=== PATIENT | female | born 1980 | race Caucasian/White ===

== ENCOUNTER 2016-08-08 05:38 | Day surgery (SDC) | payer OTHER ==
[~2016-08-08] VITALS: Ht 165.1 cm; Wt 81.6 kg
[~2016-08-08 05:38] MED LIST: HYDR-2808 PO; LR 1,000 ML IV SCH; METO10TA2 PO; METO5TAB2 PO; NAPR500T2 PO; NORC5TAB PO; PAXI20TA3 PO
[2016-08-08] MEDS ORDERED: LR 1,000 ML IV SCH ×4 (05:45→13:00)
[2016-08-08 06:08] LABS: MEAN CORPUSCULAR HEMOGLOBIN 30.9 pg (27.0-33.0); MEAN CORPUSCULAR HGB CONC 34.9 g/dl (32.0-36.5); MEAN CORPUSCULAR VOLUME 88.5 fl (80.0-96.0); RED CELL DISTRIBUTION WIDTH 12.8 % (11.5-14.5); WHITE BLOOD COUNT 7.4 K/mm3 (4.0-10.0)
[2016-08-08 06:33] LABS: CONTROL LINE UCG INT CTR LINE PRESENT
[2016-08-08] MEDS ORDERED: METHYLENE BLUE 1% 10 ML VIAL (Q9968) As Ordered ONE (07:02)
[2016-08-08] MEDS ORDERED: BUPIVACAINE HCL 0.25% 30 ML VIAL As Ordered ONE (07:02)
[2016-08-08] MEDS ORDERED: ONDANSETRON 4MG/2ML VIAL (J2405) As Ordered ONE (07:07)
[2016-08-08] MEDS ORDERED: LIDOCAINE 2% INJ 100 MG/5 ML SDV (FOR ANES.) As Ordered ONE (07:07)
[2016-08-08] MEDS ORDERED: PROPOFOL 200 MG/20 ML VIAL As Ordered ONE ×2 (07:07→09:53)
[2016-08-08] MEDS ORDERED: ROCURONIUM BROMIDE 50 MG/5 ML VIAL As Ordered ONE (07:07)
[2016-08-08] MEDS ORDERED: MIDAZOLAM INJ 2 MG/2 ML VIAL (J2250) As Ordered ONE (07:09)
[2016-08-08] MEDS ORDERED: fentaNYL 100 MCG/2 ML INJECTION (J3010) As Ordered ONE ×3 (07:09→10:00)
[2016-08-08] MEDS ORDERED: SEVOFLURANE INHAL SOLN 250 ML BTL As Ordered ONE (07:15)
[2016-08-08] MEDS ORDERED: dexameTHASONE 4 MG/ML 1ML VIAL (J1100) As Ordered ONE (08:03)
[2016-08-08] MEDS ORDERED: BUPIVACAINE HCL 0.25% 30 ML VIAL XX ONE (08:36)
[2016-08-08] MEDS ORDERED: HYDROmorphone HCL 2 MG/ML 1ML VIAL (J1170) As Ordered ONE (09:00)
[2016-08-08] MEDS ORDERED: NEOSTIGMINE 1MG/ML 5 ML SYRINGE (J2710) As Ordered ONE (09:22)
[2016-08-08] MEDS ORDERED: GLYCOPYRROLATE INJ 0.2 MG/ML 2 ML VIAL As Ordered ONE (09:22)
[2016-08-08] MEDS ORDERED: OXYC1TAB23 PO (09:46)
[2016-08-08] MEDS: fentaNYL 100 MCG/2 ML INJECTION (J3010) IV PRN ×4 (10:00→10:15)
[2016-08-08] MEDS ORDERED: ONDANSETRON 4MG/2ML VIAL (J2405) IV PRN ×2 (10:30)
[2016-08-08] MEDS ORDERED: PERCOCET 5MG/325MG TAB PO PRN ×2 (10:30)
[2016-08-08] MEDS ORDERED: MORPHINE 4 MG/ML 1ML SYRINGE IV PRN (10:30)
[2016-08-08] MEDS ORDERED: KETOROLAC 30 MG/ML VIAL (J1885) IV PRN (10:30)
[2016-08-08] MEDS: HYDROmorphone HCL 1 MG/ML SYRINGE (J1170) IV PRN ×5 (10:31→11:06)
[2016-08-08 11:30] VITALS: BP 136/74
[2016-08-08] MEDS: LR 1,000 ML IV SCH ×2 (11:31→18:30)
[2016-08-08] MEDS: PERCOCET 5MG/325MG TAB PO PRN ×3 (11:48→20:36)
[2016-08-08] MEDS: DOCUSATE SODIUM 100 MG CAP PO SCH ×2 (11:48→20:37)
[2016-08-08 12:00] VITALS: BP 107/58
[2016-08-08 13:00] VITALS: BP 109/60
[2016-08-08 14:00] VITALS: BP 113/62
[2016-08-08 16:00] VITALS: BP 116/57
[2016-08-08] MEDS: NICOTINE 21MG/24HR 1 EA TRANSDERMAL TD SCH (17:00)
[2016-08-08 20:00] VITALS: BP 121/71
[2016-08-09] VITALS: BP 133/64
[2016-08-09] MEDS: PERCOCET 5MG/325MG TAB PO PRN ×2 (02:23→08:26)
[2016-08-09 04:00] VITALS: BP 141/83
--- NOTE | 2016-08-09 05:23 | RO ---
DATE OF PROCEDURE: 08/08/2016 PREOPERATIVE DIAGNOSIS: Pelvic pain, menorrhagia. POSTOPERATIVE DIAGNOSIS: Pelvic pain, menorrhagia. PROCEDURE: Robotic assisted laparoscopic hysterectomy, cystoscopy. SURGEON: Fitz Crawford MD DIAZO TECHNICIAN: Donna Ayala NP ANESTHESIA: General endotracheal. ESTIMATED BLOOD LOSS: 50 mL. FINDINGS: Normal size uterus. Normal fallopian tubes and ovaries. Moderate scarring of the anterior surface of the uterus from prior abdomen. She had normal bladder mucosa with bilateral ureteral jets identified on cystoscopy. OPERATIVE SUMMARY: Patient taken to the operating room where general endotracheal anesthesia was induced. She was prepped and draped in sterile fashion in the dorsal lithotomy position. A Escamilla catheter was placed. A VCare uterine manipulator was placed. A periumbilical incision was made with a scalpel. A Veress needle was placed through this incision while tenting up on skin of the abdomen. Intraabdominal location of the Veress needle was assessed with use of a saline filled syringe. Pneumoperitoneum was created. Three 8 mm suprapubic ports were placed under direct visualization without difficulty. The patient was then placed in steep Trendelenburg position. The da Lee surgical robot was docked through the ports. The procedure was completed using PK dissector and monopolar Endo Adán. The fallopian tubes, utero-ovarian ligaments and round ligaments were coagulated and incised. The anterior and posterior leaflets of the broad ligament were . A bladder flap was created with a combination of blunt and sharp dissection. There was moderate scarring of the bladder to the anterior uterus. The uterine vessels were skeletonized, coagulated and incised. Colpotomy was created using the monopolar Endo Adán and circumferentially around the upper vagina to the level of the VCare cut. The vaginal mucosa was closed with V-Loc suture in a running fashion. The pelvis copiously irrigated. There was a superficial muscularis injury to the bladder, which was repaired with a single interrupted suture of #3-0 Vicryl. All instruments were removed. Cystoscopy was performed using a 70 degree cystoscope. Bilateral ureteral jets were identified. The patient previously received methylene blue dye intravenously. There was no evidence of injury to the bladder. The Escamilla catheter was replaced. All ports were removed. The skin was closed with #4-0 Monocryl subcuticular sutures. Sponge, instrument and needle counts were correct. The patient went to recovery room in stable condition.
[2016-08-09 07:09] LABS: MEAN CORPUSCULAR HEMOGLOBIN 31.3 pg (27.0-33.0); MEAN CORPUSCULAR HGB CONC 34.2 g/dl (32.0-36.5); MEAN CORPUSCULAR VOLUME 91.5 fl (80.0-96.0); RED CELL DISTRIBUTION WIDTH 13.2 % (11.5-14.5)
[2016-08-09] MEDS: DOCUSATE SODIUM 100 MG CAP PO SCH (08:25)
[2016-08-09] MEDS: NICOTINE 21MG/24HR 1 EA TRANSDERMAL TD SCH (08:26)
[2016-08-09] MEDS ORDERED: MOTR200T44 PO (08:35)
== END 2016-08-09 08:50 | disposition home or self-care (01) ==
LOC: M SDC 05:38 → M PED 11:00 → M SDC 08-09 08:50
PROVIDERS: ATTEND Specialist
DX: R10.2 Pelvic and perineal pain (principal); N92.0 Excessive and frequent menstruation with regular cycle; G89.29 Other chronic pain; F41.9 Anxiety disorder, unspecified; F17.210 Nicotine dependence, cigarettes, uncomplicated; Z91.030 Bee allergy status; Z79.899 Other long term (current) drug therapy

== ENCOUNTER → 2017-03-25 | Outpatient (CLI) | payer OTHER, SELFPAY ==
[~2017-03-25] MED LIST changes: -LR 1,000 ML IV SCH; +MOTR200T44 PO; -NAPR500T2 PO; +NAPR500T3 PO; +NORC1TAB4 PO; -NORC5TAB PO; +OXYC1TAB23 PO; +PAXI20TA29 PO; -PAXI20TA3 PO
--- NOTE | 2017-03-25 15:27 | REP ---
AP pelvis and bilateral hips: AP pelvis: Mineralization is normal. The sacroiliac and hip articulations are unremarkable. Surgical clips superimposed over the sacrum. No pelvic fractures are identified. Impression: Negative AP pelvis. Right hip two views : There is no fracture or dislocation. Mineralization and joint spaces are normal. There are no calcifications or foreign bodies. Impression: Negative Right hip Left hip two views : There is no fracture or dislocation. Mineralization and joint spaces are normal. There are no calcifications or foreign bodies. Impression: Negative left hip . Signed by Syed Guaman MD 03/25/2017 03:19 P
== END ==
LOC: M RAD 13:20
PROVIDERS: ATTEND Obstetrics & Gynecology
DX: M25.552 Pain in left hip (principal); M25.551 Pain in right hip

== ENCOUNTER → 2017-12-17 | Outpatient (CLI) | payer MEDICAID | LOC: M OUTALCOH 08:18 | DX: Z03.89 Encounter for observation for other suspected diseases and conditions ruled out (principal) ==

== ENCOUNTER 2017-12-27 11:34 | Outpatient (RCR) | payer MEDICAID | END 2018-01-21 | LOC: M OUTALCOH 01-03 10:00 | DX: F11.10 Opioid abuse, uncomplicated (principal) ==

== ENCOUNTER 2017-12-29 11:43 | Emergency (ER) | payer OTHER, MEDICAID ==
[2017-12-29] MEDS ORDERED: METHOCARBAMOL 1,000 MG/10 ML VIAL (J2800) IM (13:00)
[2017-12-29] MEDS: ONDANSETRON 4 MG ORAL DISINTEGRATING TAB (Q0162 PER 1MG) PO (13:10)
[2017-12-29] MEDS: diazePAM 5 MG TAB PO (13:10)
[2017-12-29] MEDS: predniSONE 20 MG TAB PO (13:10)
[2017-12-29] MEDS: METHOCARBAMOL 500 MG TAB PO (14:15)
== END 2017-12-29 14:49 | disposition home or self-care (01) ==
LOC: M ED 11:43
DX: M54.5 Low back pain (principal); M25.552 Pain in left hip; N80.0 Endometriosis of uterus; F41.9 Anxiety disorder, unspecified; F17.200 Nicotine dependence, unspecified, uncomplicated; Z91.030 Bee allergy status; Z79.899 Other long term (current) drug therapy; Z79.1 Long term (current) use of non-steroidal anti-inflammatories (NSAID); Z79.891 Long term (current) use of opiate analgesic
CPT/HCPCS: Q0162

== ENCOUNTER 2018-03-06 16:00 | Outpatient (RCR) | payer MEDICAID | END 2018-03-23 | LOC: M OUTALCOH 16:00 | DX: F11.10 Opioid abuse, uncomplicated (principal) ==

== ENCOUNTER 2018-04-03 15:40 | Outpatient (RCR) | payer MEDICAID | END 2018-04-23 | LOC: M OUTALCOH 15:40 | DX: F11.10 Opioid abuse, uncomplicated (principal) ==

== ENCOUNTER → 2018-06-04 | Outpatient (CLI) | payer OTHER ==
[2018-06-04 09:42] LABS: HEMATOCRIT 44.1 % (36.0-47.0); HEMOGLOBIN 14.8 g/dl (12.0-15.5); MEAN CORPUSCULAR HEMOGLOBIN 32.4 pg (27.0-33.0); MEAN CORPUSCULAR HGB CONC 33.6 g/dl (32.0-36.5); MEAN CORPUSCULAR VOLUME 96.5 fl (80.0-96.0); PLATELET COUNT, AUTOMATED 265 10^3/uL (150-450); RED BLOOD COUNT 4.57 10^6/uL (4.00-5.40); RED CELL DISTRIBUTION WIDTH 12.9 % (11.5-14.5); WHITE BLOOD COUNT 8.5 10^3/uL (4.0-10.0)
[2018-06-04 12:00] LABS: ALBUMIN 3.8 GM/DL (3.2-5.2); ALBUMIN/GLOBULIN RATIO 1.27 (1.00-1.93); ALKALINE PHOSPHATASE 44 U/L (45-117); ALT/SGPT 16 U/L (12-78); ANION GAP 8 MEQ/L (8-16); AST/SGOT 9 U/L (7-37); BILIRUBIN,TOTAL 0.2 MG/DL (0.2-1.0); BLOOD UREA NITROGEN 13 MG/DL (7-18); CALCIUM LEVEL 8.4 MG/DL (8.5-10.1); CARBON DIOXIDE LEVEL 25 MEQ/L (21-32); CHLORIDE LEVEL 108 MEQ/L (98-107); CHOLESTEROL LEVEL 141 MG/DL (<200); CHOLESTEROL RISK RATIO 2.711 (<5); GLOMERULAR FILTRATION RATE > 60.0 (>60); GLUCOSE, FASTING 82 MG/DL (70-100); HDL CHOLESTEROL 52 MG/DL (>40); LDL CHOLESTEROL 76 MG/DL (<100); NON-HDL-C 89 MG/DL; POTASSIUM SERUM 4.3 MEQ/L (3.5-5.1); SODIUM LEVEL 141 MEQ/L (136-145); THYROXINE (T4) 8.4 UG/DL (4.5-12.0); TOTAL PROTEIN 6.8 GM/DL (6.4-8.2); TRIGLYCERIDES LEVEL 67 MG/DL (<150)
[2018-06-04 12:42] LABS: TOTAL 25(OH) VITAMIN D 20.3 NG/ML (30.0-100.0); TOTAL T3 91.4 NG/DL (60.0-181.0)
[2018-06-04 15:54] LABS: ESTIMATED AVERAGE GLUCOSE 103 MG/DL (60-110); HEMOGLOBIN A1c 5.2 %
== END ==
LOC: M LAB 09:09
DX: E03.9 Hypothyroidism, unspecified (principal); D64.9 Anemia, unspecified
CPT/HCPCS: 84443

== ENCOUNTER → 2018-09-16 | Outpatient (CLI) | payer MEDICAID ==
[~2018-09-16] MED LIST changes: +ALPR0.5T3; +FLUO20CA19; +HYDR-3716; +MOBI4TAB PO; +NAPR-885; +NAPR-885 PO; -NAPR500T3 PO; +PRED20TA PO; +ZANA4TAB PO
== END ==
LOC: M OUTALCOH 08:33
PROVIDERS: ATTEND Psychiatry & Neurology Psychiatry
DX: Z03.89 Encounter for observation for other suspected diseases and conditions ruled out (principal)

== ENCOUNTER 2018-10-14 10:13 | Outpatient (RCR) | payer MEDICAID ==
[~2018-10-14 10:13] MED LIST changes: -NORC1TAB4 PO; +NORC1TAB7 PO
== END 2018-10-21 ==
LOC: M OUTALCOH 10:13
PROVIDERS: ATTEND Psychiatry & Neurology Psychiatry
DX: Z03.89 Encounter for observation for other suspected diseases and conditions ruled out (principal)

== ENCOUNTER 2019-04-05 09:22 | Emergency (ER) | payer MEDICAID, OTHER ==
[~2019-04-05] VITALS: Ht 162.6 cm; Wt 64.5 kg
[2019-04-05] MEDS ORDERED: ALPR1TAB3 PO (09:37)
[2019-04-05] MEDS ORDERED: LORazepam 1 MG TAB PO ONE (10:00)
[2019-04-05] MEDS ORDERED: BUPRENORPHINE/NALOXONE 8-2MG SUBLINGUAL TABLET(SUBOXONE) SL ONE (10:00)
[2019-04-05] MEDS ORDERED: ONDANSETRON 4 MG ORAL DISINTEGRATING TAB (Q0162 PER 1MG) PO ONE (11:00)
[2019-04-05 11:33] VITALS: BP 111/59
== END 2019-04-05 11:30 | disposition home or self-care (01) ==
LOC: EDBD 09:22 → M ED 09:22
DX: F11.23 Opioid dependence with withdrawal (principal); F19.230 Other psychoactive substance dependence with withdrawal, uncomplicated; M54.30 Sciatica, unspecified side; F17.200 Nicotine dependence, unspecified, uncomplicated; Z79.899 Other long term (current) drug therapy; Z91.030 Bee allergy status
CPT/HCPCS: 99284; Q0162

== ENCOUNTER → 2020-05-27 | Outpatient (CLI) | payer OTHER ==
[~2020-05-27] MED LIST changes: +ALPR1TAB3 PO; -FLUO20CA19; +FLUO20CA22; -HYDR-2808 PO; +HYDR-4429 PO
[2020-05-27 12:31] LABS: HEMATOCRIT 44.8 % (36.0-47.0); HEMOGLOBIN 14.8 g/dl (12.0-15.5); MEAN CORPUSCULAR HEMOGLOBIN 30.1 pg (27.0-33.0); MEAN CORPUSCULAR VOLUME 91.1 fl (80.0-96.0); PLATELET COUNT, AUTOMATED 284 10^3/uL (150-450); RED BLOOD COUNT 4.92 10^6/uL (4.00-5.40); WHITE BLOOD COUNT 6.8 10^3/uL (4.0-10.0)
[2020-05-27 12:46] LABS: HEMOGLOBIN A1c 5.1 %
[2020-05-27 13:05] LABS: ALBUMIN 4.1 GM/DL (3.2-5.2); ALT/SGPT 18 U/L (12-78); BILIRUBIN,TOTAL 0.2 MG/DL (0.2-1.0); BLOOD UREA NITROGEN 15 MG/DL (7-18); CALCIUM LEVEL 9.1 MG/DL (8.5-10.1); CARBON DIOXIDE LEVEL 24 MEQ/L (21-32); CHLORIDE LEVEL 107 MEQ/L (98-107); CHOLESTEROL LEVEL 217 MG/DL (<200); CHOLESTEROL RISK RATIO 3.191 (<5); CREATININE FOR GFR 0.85 MG/DL (0.55-1.30); GLOMERULAR FILTRATION RATE > 60.0 (>60); GLUCOSE, FASTING 96 MG/DL (70-100); HDL CHOLESTEROL 68 MG/DL (>40); IRON (FE) 56 UG/DL (50-170); LDL CHOLESTEROL 130 MG/DL (<100); NON-HDL-C 149 MG/DL; POTASSIUM SERUM 4.1 MEQ/L (3.5-5.1); SODIUM LEVEL 138 MEQ/L (136-145); TOTAL PROTEIN 7.1 GM/DL (6.4-8.2); TRIGLYCERIDES LEVEL 95 MG/DL (<150)
[2020-05-27 13:06] LABS: TOTAL IRON BINDING CAPACITY 267 UG/DL (250-450)
[2020-05-27 13:10] LABS: TOTAL 25(OH) VITAMIN D 25.5 NG/ML (30.0-100.0)
== END ==
LOC: M LAB 11:00
PROVIDERS: ATTEND Family Medicine
DX: E03.9 Hypothyroidism, unspecified (principal); D64.9 Anemia, unspecified; R53.83 Other fatigue

== ENCOUNTER → 2021-04-13 | Outpatient (CLI) | payer OTHER | LOC: M LAB 10:16 | PROVIDERS: ATTEND Family Medicine | DX: Z51.81 Encounter for therapeutic drug level monitoring (principal); Z79.899 Other long term (current) drug therapy; M54.30 Sciatica, unspecified side ==

== ENCOUNTER 2021-06-10 09:28 | Emergency (ER) | payer OTHER ==
[~2021-06-10] VITALS: Ht 162.6 cm; Wt 63.4 kg
[2021-06-10] MEDS ORDERED: NS 1,000 ML IV ONE (10:20)
[2021-06-10 10:53] LABS: BASO # 0.1 10^3/uL (0.0-0.2); BASO % 0.9 % (0.0-1.0); EOS # 0.1 10^3/uL (0.0-0.5); EOS % 1.2 % (0.0-3.0); HEMATOCRIT 43.4 % (36.0-47.0); LYMPH # 1.5 10^3/uL (1.5-5.0); LYMPH % 21.6 % (24.0-44.0); MEAN CORPUSCULAR HEMOGLOBIN 31.6 pg (27.0-33.0); MEAN CORPUSCULAR HGB CONC 34.6 g/dl (32.0-36.5); MEAN CORPUSCULAR VOLUME 91.4 fl (80.0-96.0); MONO # 0.5 10^3/uL (0.0-0.8); MONO % 7.6 % (2.0-8.0); NEUTROPHILS # 4.7 10^3/uL (1.5-8.5); NEUTROPHILS % 68.4 % (36.0-66.0); PLATELET COUNT, AUTOMATED 202 10^3/uL (150-450); RED BLOOD COUNT 4.75 10^6/uL (4.00-5.40); WHITE BLOOD COUNT 6.9 10^3/uL (4.0-10.0)
[2021-06-10 11:15] LABS: ALBUMIN 4.6 GM/DL (3.2-5.2); ALT/SGPT 14 U/L (12-78); BILIRUBIN,DIRECT 0.2 MG/DL (0.0-0.2); BILIRUBIN,TOTAL 0.9 MG/DL (0.2-1.0); BLOOD UREA NITROGEN 8 MG/DL (7-18); CALCIUM LEVEL 9.8 MG/DL (8.5-10.1); CARBON DIOXIDE LEVEL 30 MEQ/L (21-32); CHLORIDE LEVEL 102 MEQ/L (98-107); GLOMERULAR FILTRATION RATE > 60.0 (>58); GLUCOSE, FASTING 103 MG/DL (70-100); LIPASE 66 U/L (73-393); POTASSIUM SERUM 3.8 MEQ/L (3.5-5.1); SODIUM LEVEL 140 MEQ/L (136-145); TOTAL PROTEIN 7.8 GM/DL (6.4-8.2)
[2021-06-10] MEDS ORDERED: ONDANSETRON 4MG/2ML VIAL IV ONE (11:30)
--- NOTE | 2021-06-10 11:41 | REP ---
INDICATION: abd pain, vomiting COMPARISON: None. TECHNIQUE: Two supine views of the abdomen and pelvis. FINDINGS: Bowel gas pattern is nonspecific and without obstruction or perforation. No organomegaly. No abnormal calcifications. Skeletal structures intact. IMPRESSION: Normal abdominal radiograph. <Electronically signed by Reg Person > 06/10/21 [id number]
[2021-06-10] MEDS ORDERED: ONDA4TAB6 PO (13:05)
[2021-06-10 13:11] VITALS: BP 118/79
== END 2021-06-10 13:18 | disposition home or self-care (01) ==
LOC: M ED 09:28
DX: R10.9 Unspecified abdominal pain (principal); R11.2 Nausea with vomiting, unspecified; F41.9 Anxiety disorder, unspecified; F32.9 Major depressive disorder, single episode, unspecified; M54.9 Dorsalgia, unspecified; Z79.899 Other long term (current) drug therapy; Z91.030 Bee allergy status
CPT/HCPCS: 74018; 80048; 80076; 83690; 85025; 96361; 96374; 99284; J2405

== ENCOUNTER → 2021-08-08 | Outpatient (CLI) | payer OTHER ==
[~2021-08-08] MED LIST changes: +ONDA4TAB6 PO
[2021-08-08 11:09] LABS: HEMATOCRIT 42.7 % (36.0-47.0); HEMOGLOBIN 14.6 g/dl (12.0-15.5); MEAN CORPUSCULAR HEMOGLOBIN 31.9 pg (27.0-33.0); MEAN CORPUSCULAR HGB CONC 34.2 g/dl (32.0-36.5); MEAN CORPUSCULAR VOLUME 93.2 fl (80.0-96.0); PLATELET COUNT, AUTOMATED 272 10^3/uL (150-450); RED BLOOD COUNT 4.58 10^6/uL (4.00-5.40); WHITE BLOOD COUNT 6.6 10^3/uL (4.0-10.0)
[2021-08-08 11:45] LABS: ALBUMIN 4.4 GM/DL (3.2-5.2); ALT/SGPT 17 U/L (12-78); BILIRUBIN,TOTAL 0.7 MG/DL (0.2-1.0); BLOOD UREA NITROGEN 9 MG/DL (7-18); CALCIUM LEVEL 9.3 MG/DL (8.5-10.1); CARBON DIOXIDE LEVEL 23 MEQ/L (21-32); CHLORIDE LEVEL 109 MEQ/L (98-107); CHOLESTEROL LEVEL 189 MG/DL (<200); CHOLESTEROL RISK RATIO 2.486 (<5); CREATININE FOR GFR 0.86 MG/DL (0.55-1.30); GLOMERULAR FILTRATION RATE > 60.0 (>58); GLUCOSE, FASTING 90 MG/DL (70-100); HDL CHOLESTEROL 76 MG/DL (>40); IRON (FE) 105 UG/DL (50-170); LDL CHOLESTEROL 99 MG/DL (<100); NON-HDL-C 113 MG/DL; PERCENT SATURATION 39.8 % (13.2-45.0); SODIUM LEVEL 140 MEQ/L (136-145); THYROXINE (T4) 10.3 UG/DL (4.5-12.0); TOTAL IRON BINDING CAPACITY 264 UG/DL (250-450); TOTAL PROTEIN 7.6 GM/DL (6.4-8.2); TRIGLYCERIDES LEVEL 68 MG/DL (<150)
[2021-08-08 11:46] LABS: TOTAL 25(OH) VITAMIN D 18.7 NG/ML (30.0-100.0)
[2021-08-08 11:53] LABS: TOTAL T3 96.8 NG/DL (60.0-181.0); VITAMIN B12 LEVEL 351 PG/ML (247-911)
[2021-08-08 12:07] LABS: HEMOGLOBIN A1c 4.9 %
== END ==
LOC: M RAD 09:27
PROVIDERS: ATTEND Family Medicine
DX: D64.9 Anemia, unspecified (principal); R53.83 Other fatigue

== ENCOUNTER 2022-08-13 14:23 | Emergency (ER) | payer OTHER ==
[~2022-08-13] VITALS: Ht 165.1 cm; Wt 63.6 kg
[~2022-08-13 14:23] MED LIST changes: -PAXI20TA29 PO; +PAXI20TA30 PO
[2022-08-13 15:27] LABS: BASO % 0.6 % (0.0-1.0); EOS # 0.2 10^3/uL (0.0-0.5); EOS % 2.4 % (0.0-3.0); HEMATOCRIT 38.4 % (36.0-47.0); HEMOGLOBIN 12.6 g/dl (12.0-15.5); LYMPH # 2.6 10^3/uL (1.5-5.0); LYMPH % 39.8 % (24.0-44.0); MEAN CORPUSCULAR HEMOGLOBIN 30.7 pg (27.0-33.0); MEAN CORPUSCULAR HGB CONC 32.8 g/dl (32.0-36.5); MEAN CORPUSCULAR VOLUME 93.4 fl (80.0-96.0); MONO # 0.5 10^3/uL (0.0-0.8); MONO % 7.6 % (2.0-8.0); NEUTROPHILS # 3.2 10^3/uL (1.5-8.5); NEUTROPHILS % 49.1 % (36.0-66.0); PLATELET COUNT, AUTOMATED 190 10^3/uL (150-450); RED BLOOD COUNT 4.11 10^6/uL (4.00-5.40); WHITE BLOOD COUNT 6.6 10^3/uL (4.0-10.0)
[2022-08-13 15:46] LABS: LIPASE 26 U/L (12-53)
[2022-08-13 15:51] LABS: ALBUMIN 3.6 G/DL (3.2-5.2); ALKALINE PHOSPHATASE 35 U/L (46-116); ALT/SGPT 14 U/L (7.0-40); AST/SGOT 24 U/L (<34); BILIRUBIN,DIRECT < 0.1 MG/DL (<0.4); BILIRUBIN,TOTAL 0.3 MG/DL (0.3-1.2); BLOOD UREA NITROGEN 8 MG/DL (9-23); CARBON DIOXIDE LEVEL 29 MMOL/L (20-31); CHLORIDE LEVEL 104 MMOL/L (98-107); CREATININE FOR GFR 0.76 MG/DL (0.55-1.30); GLOMERULAR FILTRATION RATE > 60.0 (>58); GLUCOSE, FASTING 82 MG/DL (60-100); POTASSIUM SERUM 4.2 MMOL/L (3.5-5.1); SODIUM LEVEL 138 MMOL/L (136-145); TOTAL PROTEIN 6.1 G/DL (5.7-8.2)
[2022-08-13] MEDS ORDERED: PRIL20TA2 PO (18:34)
[2022-08-13 18:42] VITALS: BP 118/63
== END 2022-08-13 18:56 | disposition home or self-care (01) ==
LOC: M ED 14:23
DX: R10.9 Unspecified abdominal pain (principal); R11.2 Nausea with vomiting, unspecified; F17.200 Nicotine dependence, unspecified, uncomplicated; Z79.899 Other long term (current) drug therapy; Z91.030 Bee allergy status

== ENCOUNTER 2022-12-31 12:50 | Day surgery (SDC) | payer OTHER ==
[~2022-12-31] VITALS: Ht 162.6 cm; Wt 68.5 kg
[~2022-12-31 12:50] MED LIST changes: +ALPR0.5T3 PO; +DICY20TA20 PO; +ERGO500029 PO; -FLUO20CA22; +FLUO20CA22 PO; +NS 1,000 ML IV ONE; +PANT40TA29 PO; +PRIL20TA2 PO
[2022-12-31] MEDS ORDERED: propofoL 200 MG/20 ML VIAL As Ordered ONE (14:57)
[2022-12-31] MEDS ORDERED: LIDOCAINE 2% 100MG/5ML SDV (FOR ANES.) As Ordered ONE (14:57)
[2022-12-31] MEDS ORDERED: fentaNYL 100 MCG/2 ML INJECTION As Ordered ONE (15:05)
[2022-12-31 16:27] VITALS: BP 110/68; O2SAT 97
== END 2022-12-31 16:30 | disposition home or self-care (01) ==
LOC: M OPP 12:50
PROVIDERS: ATTEND Internal Medicine Gastroenterology
DX: R19.7 Diarrhea, unspecified (principal); R19.4 Change in bowel habit; K31.89 Other diseases of stomach and duodenum; K63.89 Other specified diseases of intestine; R14.0 Abdominal distension (gaseous); Z87.891 Personal history of nicotine dependence; Z79.891 Long term (current) use of opiate analgesic; Z79.899 Other long term (current) drug therapy; Z91.030 Bee allergy status
CPT/HCPCS: 43239; 45380; 88305; J3010

== ENCOUNTER 2023-04-18 10:34 | Emergency (ER) | payer OTHER ==
[~2023-04-18] VITALS: Ht 165.1 cm; Wt 75.5 kg
[~2023-04-18 10:34] MED LIST changes: -NS 1,000 ML IV ONE
[2023-04-18 10:35] VITALS: TEMP 97.8
[2023-04-18] MEDS ORDERED: NS 1,000 ML IV ONE (12:15)
[2023-04-18 12:37] LABS: HEMOGLOBIN 14.8 g/dl (12.0-15.5); MEAN CORPUSCULAR HGB CONC 33.6 g/dl (32.0-36.5); MEAN CORPUSCULAR VOLUME 95.2 fl (80.0-96.0); PLATELET COUNT, AUTOMATED 188 10^3/uL (150-450); RED BLOOD COUNT 4.62 10^6/uL (4.00-5.40); WHITE BLOOD COUNT 8.3 10^3/uL (4.0-10.0)
[2023-04-18] MEDS ORDERED: PERCOCET 5MG/325MG TAB PO ONE (12:50)
[2023-04-18 13:13] LABS: BLOOD UREA NITROGEN < 5 MG/DL (9-23); CALCIUM LEVEL 9.3 MG/DL (8.5-10.1); CARBON DIOXIDE LEVEL 31 MMOL/L (20-31); CHLORIDE LEVEL 102 MMOL/L (98-107); CK-MB VALUE MASS < 1.0 NG/ML (<3.6); CPK CREATINE PHOSPHOKINASE 96 U/L (34-145); CREATININE FOR GFR 0.78 MG/DL (0.55-1.30); GLOMERULAR FILTRATION RATE > 60.0 (>58); GLUCOSE, FASTING 75 MG/DL (60-100); MB/CK RELATIVE INDEX 1.04 (< OR =4); POTASSIUM SERUM 3.9 MMOL/L (3.5-5.1); SODIUM LEVEL 139 MMOL/L (136-145)
[2023-04-18 14:27] LABS: CK-MB VALUE MASS < 1.0 NG/ML (<3.6)
[2023-04-18 14:30] LABS: CPK CREATINE PHOSPHOKINASE 90 U/L (34-145); MB/CK RELATIVE INDEX 1.11 (< OR =4)
[2023-04-18 15:30] VITALS: BP 108/67
[2023-04-18 15:34] VITALS: O2SAT 99
[2023-04-18] MEDS ORDERED: AMOX875T2 PO (15:41)
[2023-04-18] MEDS ORDERED: OXYC1TAB23 PO (15:41)
[2023-04-18] MEDS ORDERED: HOLTER MONITOR XX (15:42)
== END 2023-04-18 16:13 | disposition home or self-care (01) ==
LOC: M ED 10:34
DX: R55 Syncope and collapse (principal); S02.40CA Maxillary fracture, right side, initial encounter for closed fracture; S80.911A Unspecified superficial injury of right knee, initial encounter; I45.10 Unspecified right bundle-branch block; F41.9 Anxiety disorder, unspecified; F17.200 Nicotine dependence, unspecified, uncomplicated; Z91.030 Bee allergy status; Z79.2 Long term (current) use of antibiotics; Z79.899 Other long term (current) drug therapy

== ENCOUNTER → 2024-03-26 | Outpatient (REF) | payer OTHER ==
[~2024-03-26] MED LIST changes: +AMOX875T2 PO; +FLUO-365 PO; -FLUO20CA22 PO; +HOLTER MONITOR XX; +ONDA-282 PO; -ONDA4TAB6 PO
== END ==
LOC: M LAB REF 21:14
PROVIDERS: ATTEND Physician Assistant
DX: B34.9 Viral infection, unspecified (principal)